=== PATIENT | female | born 1945 ===

== ENCOUNTER 2016-09-18 09:13 | Day surgery (SDC) | payer SELFPAY ==
[2016-09-18] MEDS ORDERED: Lactated Ringer's 1,000 ML IV ONE ×2 (10:15→14:25)
[2016-09-18 10:33] VITALS: BMI 29.5
[2016-09-18] MEDS ORDERED: Propofol 10 mg/ml Inj (20 ML) ONE ×2 (10:57→11:31)
[2016-09-18] MEDS ORDERED: Dexamethasone 4 mg/1 ml ONE (12:36)
[2016-09-18] MEDS ORDERED: HYDROmorphone 0.5 mg/0.5 ml ISec IVP PRN (12:56)
[2016-09-18 14:56] VITALS: O2SAT 99
[2016-09-18 16:16] VITALS: BP 120/78; PULSE 52; RESP 17; TEMP 98
--- NOTE | 2016-09-19 19:02 | OP ---
PROCEDURE DATE: 09/18/2016 PREOPERATIVE DIAGNOSIS: Postmenopausal bleeding and thickened endometrium. POSTOPERATIVE DIAGNOSES: Postmenopausal bleeding, thickened endometrium and endometrial polyp. PROCEDURE: Hysteroscopy, D and C and polypectomy with MyoSure. SURGEON: Julissa Stanley MD INSPECTOR CLIP ON SUNGLASSES: , PGY-2. ANESTHESIA: General. INTRAVENOUS FLUIDS: 400 mL of lactated Ringer's. ESTIMATED BLOOD LOSS: 25 mL. URINE OUTPUT: 25 mL, clear, drained by red rubber catheter. SPECIMENS: Endometrial curettings and endometrial polyp. COMPLICATIONS: None. FINDINGS: Exam under anesthesia revealed a normal sized anteverted uterus with normal contour and no rmal bilateral adnexa. Hysteroscopy showed an approximately 2 cm endometrial polyp extending from th e left-sided uterine wall; otherwise, atrophic endometrium noted and bilateral tubal ostia appeared t o be normal. INDICATION: This is a 71-year-old female who presented to the preop area for scheduled hysteros copy and D and C. She has a history of postmenopausal bleeding, last in 05/2016, and a thickened endo metrium seen and pelvic ultrasound. An in-office endometrial biopsy revealed fragments of atrophic e ndometrium, no malignancy or dysplasia was seen; however, due to persistent bleeding, the patient was advised to undergo a hysteroscopy and D and C. The risks, benefits, and alternatives of the procedur e were discussed with the patient. She understood the risks of the procedure to include, but not patrick ited to uterine perforation, fluid overload and the rare risk of . She wished to proceed and th e consent was previously signed. DESCRIPTION OF PROCEDURE: The patient was taken to the operating room where general anesthesia was a dministered without difficulty. She was placed in the dorsal lithotomy position using Nitin stirrups . An exam under anesthesia revealed a normal anteverted uterus. The patient was then prepped and dr aped in a normal sterile fashion. A weighted speculum was inserted in the posterior aspect of the va josé antonio and a single-tooth tenaculum was used to grasp the anterior lip of the cervix. The uterus was t hen carefully sounded to 7 cm. The cervical os was then sequentially dilated to accommodate the hyst eroscope using Hegar dilators. The hysteroscope was then introduced and under direct visualization o f the uterus, with normal saline as a distending media, both ostia were visualized and appeared gross ly normal. An approximately 2 cm endometrial polyp was seen extending from the left lateral side wal l and the endometrium appeared otherwise as atrophic. The hysteroscope was then withdrawn and the ce rvix was further dilated to accommodate a large sharp curette. The uterus was then curetted in clock hooker fashion until a gritty feeling was noted in all aspects of the uterus. Following this, the hyst eroscope was then reintroduced and the polyp was still seen. The MyoSure device was then used to per form a polypectomy for removal of the polyp and the polyp was removed in its entirety down to the end ometrial wall. The polyp and endometrial samplings were sent to pathology. All instruments were the n removed. The tenaculum was removed from the cervix and good hemostasis was noted. The patient kofi erated the procedure well. The instrument and sponge counts were all correct. The patient was awake angella from anesthesia and taken to the recovery room in stable condition. The patient will go home aft er recovering from anesthesia and meeting all the criteria for discharge. She was given instructions regarding followup visit in 2 weeks in women's services and a prescription for Tylenol was given for pain med. Julissa Stanley MD cc: 201 TT: 09/19/2016 19:01:22 all
== END 2016-09-18 16:00 | disposition home or self-care (01) ==
LOC: H.OPSURG 09:13
PROVIDERS: ATTEND Obstetrics & Gynecology
DX: N95.0 Postmenopausal bleeding (principal); R93.8 Abnormal findings on diagnostic imaging of other specified body structures; N84.0 Polyp of corpus uteri

== ENCOUNTER 2017-01-04 08:48 | Emergency (ER) | payer OTHER, SELFPAY ==
[2017-01-04 08:48] VITALS: BMI 29.5
[2017-01-04 09:03] VITALS: BP 153/76; PULSE 57; RESP 20; TEMP 97.3; O2SAT 95
--- NOTE | 2017-01-04 09:38 | ED PDOC ---
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 Denies headache, head injury, or loss of consciousness. Past Medical History Reviewed: Historical Data, Nursing Documentation, Vital Signs Vital Signs: Last Vital Signs Temp 97.3 F L 01/04/17 09:02 Pulse 57 L 01/04/17 09:02 Resp 20 01/04/17 09:02 BP 153/76 H 01/04/17 09:02 Pulse Ox 95 01/04/17 11:56 - Medical History PMH: Gastritis, HTN, Hypercholesterolemia, Osteoporosis Denies: Chronic Kidney Disease - Surgical History Surgical History: No Surg Hx - Family History Family History: States: Unknown Family Hx - Social History Current smoker - smoking cessation education provided: No Alcohol: None Drugs: Denies - Immunization History Hx Tetanus Toxoid Vaccination: No Hx Influenza Vaccination: No Hx Pneumococcal Vaccination: No - Home Medications Home Medications: Ambulatory Orders Medication Instructions Recorded Pravastatin Sodium [Pravastatin] 40 mg PO HS 04/29/14 amLODIPine [Norvasc] 2.5 mg PO DAILY 04/29/14 Aspirin [Aspirin Chewable] 81 mg PO DAILY 03/14/15 Acetaminophen [Tylenol Extra 2 mg PO Q4 PRN 09/18/16 Strength] Omeprazole Magnesium [Prilosec Otc] 20 mg PO DAILY 09/18/16 Naproxen [Naprosyn] 500 mg PO BID PRN #15 tablet 01/04/17 - Allergies Allergies/Adverse Reactions: Allergies Allergy/AdvReac Type Severity Reaction Status Date / Time No Known Allergies Allergy Verified 01/04/17 09:08 Review of Systems ROS Statement: Except As Marked, All Systems Reviewed And Found Negative Cardiovascular: Positive for: Other (Right rib pain) Musculoskeletal: Positive for: Other (Right knee pain) Neurological: Negative for: Headache (or head injury ), Other (loss of consciousness) Physical Exam - Reviewed Nursing Documentation Reviewed: Yes Vital Signs Reviewed: Yes - Physical Exam Appears: Positive for: Non-toxic, No Acute Distress Head Exam: Positive for: ATRAUMATIC, NORMAL INSPECTION, NORMOCEPHALIC Skin: Positive for: Normal Color, Warm, Dry Cardiovascular/Chest: Positive for: Regular Rate, Rhythm, Other (Right rib evalauted. No erythema or ecchymosis noted. Positive for tendneress to the right anterior rib region. ). Negative for: Murmur Respiratory: Positive for: Normal Breath Sounds. Negative for: Accessory Muscle Use, Respiratory Distress Extremity: Positive for: Normal ROM (FULL, able to ambulate), Other ( Superficial abrasion of the right knee) Neurologic/Psych: Positive for: Alert, Oriented (x3) - ECG O2 Sat by Pulse Oximetry: 95 (RA) Pulse Ox Interpretation: Normal Medical Decision Making Medical Decision Making: Time: 09:32 Initial Impression: Right knee and right rib pain s/p fall Initial Plan: --Right knee x-ray --Right-sided Ribs and Chest x-ray --Tylenol 650 mg PO --Reevaluation Time: 11:45 --Knee x-ray FINDINGS: BONES: No acute fracture. JOINTS: Mild patellofemoral osteoarthritis noted. Medial and lateral compartments are grossly preserved. JOINT EFFUSION: None. OTHER FINDINGS: None. IMPRESSION: No acute fracture. Mild patellofemoral osteoarthritis. Time: 11:48 --Ribs and chest x-ray FINDINGS: RIGHT RIBS: No fracture or focal lesion visualized. LUNGS: Minimal linear atelectasis left lower lobe. PLEURA: No pneumothorax or pleural fluid. CARDIOVASCULAR: Normal sized heart. No pulmonary vascular congestion. OTHER FINDINGS: There is thoracolumbar levoscoliosis with mild thoracic dextroscoliotic curvature. IMPRESSION: Unremarkable radiographs of the chest and right ribs. No right rib fracture. Time: 11:57 Upon provider reevaluation patient is feeling better, is medically stable, and requires no further treatment in the ED at this time. Patient will be discharged home with Rx for Naprosyn 500 mg. Counseling was provided and all questions were answered regarding diagnosis and need for follow up with referred clinic. There is agreement to discharge plan. Return if symptoms persist or worsen. Clinical Impression: Rib contusion and knee contusion Scribe Attestation: Documented by Licha Newby, acting as a scribe for Evonne Adams MD. Provider Scribe Attestation: All medical record entries made by the Scribe were at my direction and personally dictated by me. I have reviewed the chart and agree that the record accurately reflects my personal performance of the history, physical exam, medical decision making, and the department course for this patient. I have also personally directed, reviewed, and agree with the discharge instructions and disposition. Disposition - Clinical Impression Clinical Impression: Rib contusion, Knee contusion - Patient ED Disposition Is Patient to be Admitted: No Counseled Patient/Family Regarding: Studies Performed, Diagnosis, Need For Followup, Rx Given - Disposition Referrals: [facility] [Outside] Disposition: Routine/Home Disposition Time: 11:57 Condition: STABLE Prescriptions: Naproxen [Naprosyn] 500 mg PO BID PRN #15 tablet PRN Reason: Pain, Moderate (4-7) Instructions: Contusion in Adults (ED), Rib Contusion (ED) Forms: [employer] (Samoan) Print Language: UZBEK
--- NOTE | 2017-01-04 11:46 | RAD ---
PROCEDURE: Right Knee Radiographs. HISTORY: Fall COMPARISON: None. FINDINGS: BONES: No acute fracture. JOINTS: Mild patellofemoral osteoarthritis noted. Medial and lateral compartments are grossly preserved. JOINT EFFUSION: None. OTHER FINDINGS: None. IMPRESSION: No acute fracture. Mild patellofemoral osteoarthritis.
--- NOTE | 2017-01-04 11:50 | RAD ---
PROCEDURE: Radiographs of the Chest and Right Ribs. HISTORY: Fall COMPARISON: None available. TECHNIQUE: Frontal radiograph of the chest and multiple oblique radiographs of the right ribs were obtained. FINDINGS: RIGHT RIBS: No fracture or focal lesion visualized. LUNGS: Minimal linear atelectasis left lower lobe. PLEURA: No pneumothorax or pleural fluid. CARDIOVASCULAR: Normal sized heart. No pulmonary vascular congestion. OTHER FINDINGS: There is thoracolumbar levoscoliosis with mild thoracic dextroscoliotic curvature. IMPRESSION: Unremarkable radiographs of the chest and right ribs. No right rib fracture.
== END 2017-01-04 11:56 | disposition home or self-care (01) ==
LOC: H.ER 08:48
DX: S80.01XA Contusion of right knee, initial encounter (principal); R07.81 Pleurodynia; W01.0XXA Fall on same level from slipping, tripping and stumbling without subsequent striking against object, initial encounter; I10 Essential (primary) hypertension; E78.00 Pure hypercholesterolemia, unspecified; M81.0 Age-related osteoporosis without current pathological fracture; M19.90 Unspecified osteoarthritis, unspecified site; K29.70 Gastritis, unspecified, without bleeding; Y93.02 Activity, running; Y92.480 Sidewalk as the place of occurrence of the external cause

== ENCOUNTER 2017-01-08 15:31 | Emergency (ER) | payer OTHER, SELFPAY ==
[2017-01-08 15:31] VITALS: BMI 29.5
[2017-01-08 15:44] VITALS: BP 173/78; PULSE 66; RESP 16; TEMP 98.6; O2SAT 99
--- NOTE | 2017-01-08 15:56 | ED PDOC ---
HPI: General Adult Time Seen by Provider: 01/08/17 15:47 Chief Complaint (Nursing): Back Pain Chief Complaint (Provider): Right sided rib and back pain History Per: Patient Onset/Duration Of Symptoms: Days Have you had recent travel within the past 21 days to any of the following countries: [place], [place], [place] or [place]?: No Current Symptoms Are (Timing): Still Present Additional History Per: Patient Additional Complaint(s): The patient is a 71 y/o female, presents to the ED for evaluation of persistent right sided rib pain since falling on 01/04/2017. Patient states she visited this facility after the fall and had XR's done and was given Naprosyn for pain; patient states she has been taking the medication without relief, prompting her visit today. She denies any urinary symptoms and offers no other medical complaints. No further falls or trauma since original fall. No associated chest pain, shortness of breath or dyspnea on exertion. Past Medical History Reviewed: Historical Data, Nursing Documentation, Vital Signs Vital Signs: Last Vital Signs Temp 98.6 F 01/08/17 15:40 Pulse 66 01/08/17 15:40 Resp 16 01/08/17 15:40 BP 173/78 H 01/08/17 15:40 Pulse Ox 99 01/08/17 17:22 - Medical History PMH: Gastritis, HTN, Hypercholesterolemia, Osteoporosis - Surgical History Other surgeries: tubal ligation, bilateral foot surgery - Family History Family History: States: No Known Family Hx - Living Arrangements Living Arrangements: With Family - Social History Current smoker - smoking cessation education provided: No Ex-Smoker (has not smoked in the last 12 months): No Alcohol: None Drugs: Denies - Home Medications Home Medications: Ambulatory Orders Medication Instructions Recorded Pravastatin Sodium [Pravastatin] 40 mg PO HS 04/29/14 amLODIPine [Norvasc] 2.5 mg PO DAILY 04/29/14 Aspirin [Aspirin Chewable] 81 mg PO DAILY 03/14/15 Acetaminophen [Tylenol Extra 2 mg PO Q4 PRN 09/18/16 Strength] Omeprazole Magnesium [Prilosec Otc] 20 mg PO DAILY 09/18/16 Naproxen [Naprosyn] 500 mg PO BID PRN #15 tablet 01/04/17 Ibuprofen [Motrin Tab] 800 mg PO Q8 PRN #20 tab 01/08/17 traMADol [Ultram] 50 mg PO TID PRN #15 tab 01/08/17 - Allergies Allergies/Adverse Reactions: Allergies Allergy/AdvReac Type Severity Reaction Status Date / Time No Known Allergies Allergy Verified 01/04/17 09:08 Review of Systems ROS Statement: Except As Marked, All Systems Reviewed And Found Negative Cardiovascular: Positive for: Other (persistet right sided rib pain s/p fall on 01/04/17) Genitourinary Female: Negative for: Dysuria, Frequency, Hematuria Musculoskeletal: Positive for: Back Pain (right back pain) Physical Exam - Reviewed Nursing Documentation Reviewed: Yes Vital Signs Reviewed: Yes - Physical Exam Appears: Positive for: Non-toxic, No Acute Distress Head Exam: Positive for: ATRAUMATIC, NORMAL INSPECTION, NORMOCEPHALIC Skin: Positive for: Warm, Dry Eye Exam: Positive for: Normal appearance Neck: Positive for: Normal, Supple Cardiovascular/Chest: Positive for: Regular Rate, Rhythm. Negative for: Chest Non Tender (right lateral chest wall tenderness noted; no obvious deformity noted) Respiratory: Positive for: Normal Breath Sounds. Negative for: Crackles, Wheezing, Respiratory Distress Gastrointestinal/Abdominal: Positive for: Soft. Negative for: Tenderness, Distended, Guarding, Rebound Back: Negative for: L CVA Tenderness, R CVA Tenderness Extremity: Positive for: Normal ROM. Negative for: Deformity, Swelling Neurologic/Psych: Positive for: Alert, Oriented - ECG O2 Sat by Pulse Oximetry: 99 (RA) Pulse Ox Interpretation: Normal - Other Rad CXR with right rib series X-Ray: Interpreted by Me, Viewed By Me X-Ray Interpretation: no rib fracture, NAP Medical Decision Making Medical Decision Making: Time: 1550 Impression: Persistent right rib and back pain Plan: -- XR Ribs and chest -- Incentive Spirometer -- Toradol 30 mg IM -- Tramadol 50 mg PO Reassess Patient feels better after meds given in ED. Rx given for tramadol and motrin. Incentive spirometer given. Patient was instructed to follow up with PMD in 1 -2 days. Scribe Attestation: Documented by Evy Watson acting as a scribe for NELSON Wan Provider Attestation: All medical record entries made by the Scribe were at my direction and personally dictated by me. I have reviewed the chart and agree that the record accurately reflects my personal performance of the history, physical exam, medical decision making, and the department course for this patient. I have also personally directed, reviewed, and agree with the discharge instructions and disposition. Disposition - Clinical Impression Clinical Impression: Rib contusion - Patient ED Disposition Is Patient to be Admitted: No Counseled Patient/Family Regarding: Studies Performed, Diagnosis, Need For Followup, Rx Given - Disposition Referrals: [facility] [Outside] Disposition Time: 17:22 Condition: IMPROVED Additional Instructions: Take prescription meds as directed as needed for pain. Use incentive spirometer as often as possible. Follow-up with clinic in 2-3 days. Prescriptions: Ibuprofen [Motrin Tab] 800 mg PO Q8 PRN #20 tab PRN Reason: Pain, Moderate (4-7) traMADol [Ultram] 50 mg PO TID PRN #15 tab PRN Reason: Pain, Moderate (4-7) Instructions: Rib Contusion (ED), How to Use an Incentive Spirometer (ED) Forms: [employer] (Somali) Print Language: KYRGYZ
--- NOTE | 2017-01-08 16:24 | RAD ---
PROCEDURE: Radiographs of the Chest and Right Ribs. HISTORY: trauma COMPARISON: 01/04/2017 TECHNIQUE: Frontal radiograph of the chest and multiple oblique radiographs of the right ribs were obtained. FINDINGS: RIGHT RIBS: No fracture or focal lesion visualized. LUNGS: Clear. PLEURA: No pneumothorax or pleural fluid. CARDIOVASCULAR: Normal sized heart. No pulmonary vascular congestion. OTHER FINDINGS: None. IMPRESSION: Unremarkable radiographs of the chest and right ribs. No right rib fracture. No significant interval change compared to the prior examination(s). Concordant results with the preliminary interpretation rendered by the emergency department physician procedure.
== END 2017-01-08 17:53 | disposition home or self-care (01) ==
LOC: H.ER 15:31
DX: S20.219A Contusion of unspecified front wall of thorax, initial encounter (principal); W19.XXXA Unspecified fall, initial encounter; Y92.89 Other specified places as the place of occurrence of the external cause
CPT/HCPCS: 71101; 96372; 99282; J1885